=== PATIENT | female | born 1980 | race Caucasian/White ===

== ENCOUNTER 2021-11-05 13:37 | Outpatient (CLI) | payer BC, SELFPAY ==
[2021-11-05 17:25] LABS: Chloride* 103 mmol/L (96-114); Potassium* 5.1 mmol/L (3.6-5.1); Sodium* 134 mmol/L (135-149)
[2021-11-05 17:26] LABS: Carbon Dioxide* 24 mmol/L (20-32); Creatinine* 0.8 mg/dL (0.5-1.5); Estimated Glomerular Filt Rate 96.06
[2021-11-05 17:27] LABS: Blood Urea Nitrogen* 14 mg/dL (5-24); Calcium* 9.6 mg/dL (8.4-10.6); Glucose* 85 mg/dL (60-115)
== END 2021-11-05 13:38 | disposition home or self-care (01) ==
LOC: NFLDREF 13:38
PROVIDERS: PCP Family Medicine; Visit Provider Family Medicine
DX: I10 Essential (primary) hypertension (principal)
CPT/HCPCS: 80048

== ENCOUNTER 2022-08-30 16:01 | Emergency (ER) | payer BC, SELFPAY ==
[2022-08-30 16:05] VITALS: BP 120/90; PULSE 106; RESP 20; TEMP 37; O2SAT 97; BMI 60.1
--- NOTE | 2022-08-30 16:33 | ED_ITS ---
HPI - Back Pain/Injury General Chief Complaint: Back Injury/Pain Stated Complaint: back and neck pain, numbness Time Seen by Provider: 08/30/22 16:20 History of Present Illness HPI Narrative: This 41-year-old female comes in reporting left-sided neck pain radiating down her left arm. These symptoms have been present for weeks or months but she did fall about a month ago and it seems that symptoms are worse since then. She has been seeing a chiropractor without any relief. She states that she has decreased sensation throughout her whole left arm and hand. She has been taking Tylenol and ibuprofen without much relief. She states that she was able to sleep only about 3 hours last night because of these symptoms. Related Data Home Medications Medication Instructions Recorded Confirmed metformin 1,000 mg tablet 500 - 1,000 mg PO BID 08/30/22 08/30/22 multivitamin 1 tab PO DAILY 08/30/22 08/30/22 Previous Rx's Medication Instructions Recorded metoprolol succinate 100 mg 100 mg PO QDAY #7 tabs 10/25/21 tablet,extended release 24 hr norgestimate 0.25 mg-ethinyl 1 tab PO QDAY #28 tabs 10/25/21 estradiol 35 mcg tablet (Sprintec (28)) lisinopril 10 mg tablet 10 mg PO QDAY #90 tabs 11/05/21 cyclobenzaprine 10 mg tablet 10 mg PO TID #15 tabs 08/30/22 gabapentin 100 mg capsule 100 mg PO TID #30 caps 08/30/22 ketorolac 10 mg tablet 10 mg PO Q8H 5 days #15 tabs 08/30/22 methylprednisolone 4 mg tablets in See Rx Instructions PO .COMPLEX 08/30/22 a dose pack (Medrol (Sal)) #21 ea Allergies Allergy/AdvReac Type Severity Reaction Status Date / Time adhesive Allergy Severe Rash Verified 08/30/22 16:08 Review of Systems Status of ROS: Reports: 10 or more systems reviewed and unremarkable except as noted in History and below Narrative: Constitutional: No fevers, no weight gain or loss. Eyes: No discharge. No vision changes. HENT: No congestion, no sore throat, no ear pain. Cardiovascular: No chest pain, no palpitations. Respiratory: No shortness of breath, no wheezes, no cough. Gastrointestinal: No abdominal pain, no vomiting, no diarrhea. Genitourinary: No dysuria, no hematuria. Musculoskeletal: Neck pain radiating down the left arm. Skin: No rashes, no pruritis. Neurological: No dizziness, weakness, speech change. Decreased sensation in the left arm and hand but no loss of strength. Endo/Heme/Allergies: No bruising or bleeding. No polydipsia. Pysch: no suicidality, no anxiety, no insomnia. All other systems reviewed and are negative. PFSH PFSH Family History (Updated 11/04/21 @ 09:30 by Martha Block) Family/Other Diabetes Heart disease Stroke Mental disorder Father Heart disease Aunt Lung cancer Social History (Updated 11/05/21 @ 13:12 by Toni Jean MD) Narrative: SOCIAL HISTORY: . Two children ages 8 and 11 with 2 additional relative living with them. 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 She works from home. 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 She is sexually active. No regular exercise. HABITS: No tobacco alcohol or recreational drug use. Smoking Status: Never smoker Exam Narrative: Exam Narrative: Constitutional: Well-developed, well-nourished, no acute distress. HEENT: Normocephalic, atraumatic. Neck: Normal range of motion. Nontender. Supple. Heart: Regular. No murmurs. Normal rate. Intact distal pulses. Lungs: Clear to auscultation. No chest discomfort. No wheezes, rhonchi, or rales. Abdomen: Normal bowel sounds. Nontender. No rebound tenderness. Genitalia: Deferred. Back: No midline tenderness. Left-sided neck pain radiating down the left arm. Extremities: Normal range of motion. No injury. Skin: Intact. No rash. Warm. No erythema or pallor. Neurologic: No weakness. Alert and oriented. Decreased sensation through the left arm into the left hand. Induction Coordination Power Engineer strength is equal bilaterally. Psychiatric: No suicidality. No anxiety or depression. No insomnia. Nursing notes and vitals signs are reviewed. Const: Vital Signs, click to edit/add: Vital Signs - 24 hr 08/30/22 16:05 Temperature 98.6 F Pulse Rate [Pulse Oximeter] 106 H Respiratory Rate 20 Blood Pressure [Ri ght Upper Arm] 120/90 H Pulse Oximetry 97 Oxygen Delivery Me thod Room Air Course Vital Signs Vital signs: Initial Vital Signs Temperature 98.6 F 08/30/22 16:05 Temperature Source Temporal Artery Scan 08/30/22 16:05 Pulse Rate 106 H 08/30/22 16:05 Respiratory Rate 20 08/30/22 16:05 Blood Pressure 120/90 H 08/30/22 16:05 Blood Pressure Mean 100 08/30/22 16:05 Blood Pressure Position Sitting 08/30/22 16:05 Pulse Oximetry 97 08/30/22 16:05 Oxygen Delivery Method Room Air 08/30/22 16:05 Vital Signs Temperature 98.6 F 08/30/22 16:05 Pulse Rate 106 H 08/30/22 16:05 Respiratory Rate 20 08/30/22 16:05 Blood Pressure 120/90 H 08/30/22 16:05 Pulse Oximetry 97 08/30/22 16:05 Oxygen Delivery Method Room Air 08/30/22 16:05 Temperature 98.6 F 08/30/22 16:05 Pulse Rate 106 H 08/30/22 16:05 Respiratory Rate 20 08/30/22 16:05 Blood Pressure 120/90 H 08/30/22 16:05 Pulse Oximetry 97 08/30/22 16:05 Oxygen Delivery Method Room Air 08/30/22 16:05 MDM - Back Pain/Injury MDM Narrative Medical decision making narrative: This patient comes in with symptoms typical of a cervical radiculopathy. There is no recent significant injury event that mandates imaging studies at this time. She may need a MRI going forward. The patient did received prescriptions for Toradol, Flexeril, gabapentin, and Medrol Dosepak. I advised her to follow- up with our spine clinic for further evaluation and treatment. Discharge Plan Discharge Clinical Impression: Cervical radiculopathy Patient Disposition: Home, Self-Care Condition: Unchanged Additional Instructions: Take medication as needed and indicated. Follow up with Spine Clinic. Call for appointment by dialing [phone]. Prescriptions: New cyclobenzaprine 10 mg tablet 10 mg PO TID Qty: 15 0RF ketorolac 10 mg tablet 10 mg PO Q8H 5 Days Qty: 15 0RF gabapentin 100 mg capsule 100 mg PO TID Qty: 30 2RF methylprednisolone [Medrol (Sal)] 4 mg tablets,dose pack See Rx Instructions .ROUTE .COMPLEX Qty: 21 0RF Rx Instructions: orally per package directions No Action lisinopril 10 mg tablet 10 mg PO QDAY Qty: 90 3RF multivitamin Tablet 1 tab PO DAILY metformin 1,000 mg tablet 500 - 1,000 mg PO BID Rx Instructions: 1000mg in AM, 500mg in PM metoprolol succinate 100 mg tablet extended release 24 hr 100 mg PO QDAY Qty: 7 0RF norgestimate-ethinyl estradiol [Sprintec (28)] 0.25-35 mg-mcg tablet 1 tab PO QDAY Qty: 28 0RF Follow Up/Referrals: Toni Jean MD [Primary Care Provider] - Stand Alone Forms: [employer] Info Instructions
== END 2022-08-30 17:00 | disposition home or self-care (01) ==
LOC: ED 16:45
PROVIDERS: Emergency Provider Emergency Medicine Emergency Medical Services; PCP Family Medicine
DX: M54.12 Radiculopathy, cervical region (principal)
CPT/HCPCS: 99283; 99284

== ENCOUNTER 2022-11-07 08:18 | Outpatient (CLI) | payer BC, SELFPAY | END 2022-11-07 08:19 | disposition home or self-care (01) | LOC: NFLDREF 20:56 | PROVIDERS: PCP Family Medicine; Referring Provider Family Medicine; Visit Provider Family Medicine | DX: I10 Essential (primary) hypertension (principal); Z13.6 Encounter for screening for cardiovascular disorders | CPT/HCPCS: 80048; 80061 ==

== ENCOUNTER 2023-02-12 09:30 | Outpatient (CLI) | payer BC, SELFPAY | END 2023-02-12 09:31 | disposition home or self-care (01) | LOC: NFLDREF 02-14 20:45 | PROVIDERS: PCP Family Medicine; Referring Provider Family Medicine; Visit Provider Family Medicine | DX: E78.1 Pure hyperglyceridemia (principal); I10 Essential (primary) hypertension; Z79.899 Other long term (current) drug therapy | CPT/HCPCS: 80048; 80061; 84450; 84460 ==

== ENCOUNTER 2023-02-27 06:17 | Outpatient (CLI) | payer BC, SELFPAY ==
[2023-02-27 06:55] LABS: Ur HCG Qualitative* Negative (Negative)
--- NOTE | 2023-02-27 07:47 | W.ANESCHARGE ---
Anesthesia Charges Start Date/Time Anesthesia Start Date: 02/27/23 Anesthesia Start Time: 07:15 Stop Date/Time Anesthesia Stop Date: 02/27/23 Anesthesia Stop Time: 07:43
--- NOTE | 2023-02-27 08:00 | W.ANESCHARGE ---
Anesthesia Charges Start Date/Time Anesthesia Start Date: 02/27/23 Anesthesia Start Time: 07:15 Stop Date/Time Anesthesia Stop Date: 02/27/23 Anesthesia Stop Time: 07:43
== END 2023-02-27 06:18 | disposition home or self-care (01) ==
LOC: OP CLINIC 06:18
PROVIDERS: PCP Family Medicine; Visit Provider Internal Medicine
DX: Z86.010 Personal history of colon polyps (principal)
CPT/HCPCS: 45378; 81025; 811; 812; J2704

== ENCOUNTER 2023-03-17 14:39 | Outpatient (CLI) | payer BC, SELFPAY ==
--- NOTE | 2023-03-17 14:40 | CRLHL7_ITS ---
For Patients: As a result of the Cures Act, medical imaging exams and procedure reports are released immediately into your electronic medical record. You may view this report before your referring provider. If you have questions, please contact your health care provider. BILATERAL DIGITAL SCREENING MAMMOGRAM WITH COMPUTER-AIDED DETECTION CLINICAL HISTORY: Routine screening exam. COMPARISON: 08/25/2019 TECHNIQUE: Digital mammogram in CC and MLO projections including computer-aided detection (CAD). BREAST COMPOSITION: Scattered fibroglandular densities. FINDINGS: RIGHT Breast: Lobular nodular density upper outer quadrant 12 cm from the nipple. LEFT Breast: No suspicious findings. IMPRESSION: RIGHT breast asymmetry/mass. RECOMMENDATIONS: Additional mammographic views of the RIGHT breast including 3D spot compression cc/MLO. RIGHT breast ultrasound may also be required. A member of the radiology staff will be contacting the patient to arrange for this additional study. BI-RADS Category 0: Incomplete: Need Additional Imaging Evaluation and/or Prior Mammograms for Comparison Dictated by Darek Estrella MD @ 03/18/2023 8:48:35 AM (Electronically Signed)
== END 2023-03-17 14:40 | disposition home or self-care (01) ==
PROVIDERS: PCP Family Medicine; Visit Provider Family Medicine
DX: Z12.31 Encounter for screening mammogram for malignant neoplasm of breast (principal); N63.10 Unspecified lump in the right breast, unspecified quadrant
CPT/HCPCS: 77063; 77067

== ENCOUNTER 2023-03-30 07:40 | Outpatient (CLI) | payer BC, SELFPAY ==
--- NOTE | 2023-03-30 07:45 | CRLHL7_ITS ---
For Patients: As a result of the Cures Act, medical imaging exams and procedure reports are released immediately into your electronic medical record. You may view this report before your referring provider. If you have questions, please contact your health care provider. DIGITAL DIAGNOSTIC RIGHT MAMMOGRAM USING TOMOSYNTHESIS AND COMPUTER-AIDED DETECTION RIGHT BREAST ULTRASOUND CLINICAL HISTORY: RIGHT breast mass/asymmetry. COMPARISON: 03/17/2023. TECHNIQUE: Digital RIGHT mammogram in two projections. Tomosynthesis and CAD utilized. Real-time ultrasound imaging of RIGHT breast with imaging documentation. BREAST COMPOSITION: There are areas of scattered fibroglandular density. FINDINGS: 3D spot compression CC/MLO RIGHT breast mammogram images submitted. Persistent nodular density within the upper outer quadrant. No architectural distortion. No suspicious calcifications. Targeted RIGHT breast ultrasound performed at 11 o`clock 11 cm from the nipple. In this location, there is a benign intramammary lymph node measuring 1.2 x 0.6 x 0.7 cm. No abnormal vascularity. IMPRESSION: Benign intramammary lymph node RIGHT breast. No evidence of malignancy. RECOMMENDATIONS: Annual BILATERAL screening mammography. Results and recommendations discussed with the patient. BI-RADS Category 2: Benign A lay language report of this examination will be provided to the patient. Dictated by Darek Estrella MD @ 03/30/2023 9:00:36 AM j/Dictated by: Darek Estrella MD @ 03/30/2023 9:00:00 AM (Electronically Signed)
--- NOTE | 2023-03-30 08:15 | CRLHL7_ITS ---
For Patients: As a result of the Cures Act, medical imaging exams and procedure reports are released immediately into your electronic medical record. You may view this report before your referring provider. If you have questions, please contact your health care provider. PLEASE SEE DIGITAL DIAGNOSTIC RIGHT MAMMOGRAM PERFORMED SAME DAY CRL:yao samayoa/Dictated by: Darek Estrella MD @ 03/30/2023 9:00:00 AM (Electronically Signed)
== END 2023-03-30 07:41 | disposition home or self-care (01) ==
LOC: MAMMO 07:41
PROVIDERS: PCP Family Medicine; Visit Provider Family Medicine
DX: N63.10 Unspecified lump in the right breast, unspecified quadrant (principal); R92.8 Other abnormal and inconclusive findings on diagnostic imaging of breast
CPT/HCPCS: 76642; 77065; G0279

== ENCOUNTER 2023-12-01 08:54 | Outpatient (CLI) | payer BC, SELFPAY ==
--- OUTSIDE RECORDS SUMMARY | 2023-12-01 09:05 | XMS_ITS | Clinical Summary ---
Author Organization [facility] Address [place], [place] [address] Care Team Providers Care Paint Supervisor Name Role Phone Toni Jean MD Primary Care Provider [phone] Social History Tobacco Use Types Packs/Day Years Used Date Smoking Tobacco: Never Assessed Sex and Gender Information Value Date Recorded Sex Assigned at Not on file Gender Identity Not on file Sexual Orientation Not on file Plan of Treatment Health Maintenance Due Date Last Done Comments Tdap 1992 Depression screening for age 12+ 1993 HIV for age 15-65 1996 BMI (ht and wt on same day) for age 18+ 11/29/1999 Hepatitis C screening for ag e 18-79 11/29/1999 Tetanus booster 2001 Pap test for age 21-65 2002 COVID-19 vaccine series (2022-24 season) 2022 08/21/2020, 07/31/2020 Influenza for age 9-49 12/27/2023 Pneumococcal series for age 6-64 Aged Out No longer eligible b ased on patient's age to complete this topic Care Teams Paint Supervisor Relationship Specialty Start Date End Date Toni Jean MD [address] [place] [id number] PCP - General Family Practice 09/04/22
[2023-12-01 09:30] LABS: Basophils Absolute Auto 0.05 K/uL (0.00-0.30); Basophils Percent Auto 0.5 % (0.0-3.0); Eosinophils Absolute Auto 0.27 K/uL (0.00-0.50); Eosinophils Percent Auto 2.7 % (0.0-7.0); Hematocrit 42.8 % (33.0-51.0); Hemoglobin* 13.8 gm/dL (12.0-16.0); Immature Granulocytes Abs Auto 0.02 K/uL (0.00-0.30); Immature Granulocytes Pct Auto 0.2 %; Lymphocytes Absolute Auto 3.01 K/uL (0.90-2.90); Lymphocytes Percent Auto 30.1 % (20-44); Mean Corpuscular HGB Conc 32 gm/dL (32-36); Mean Corpuscular Hemoglobin 28 pg (26-34); Mean Corpuscular Volume 86 fL (80-100); Monocytes Percent Auto 5.7 % (0.0-11.0); Neutrophils Absolute Auto 6.08 K/uL (1.7-7.0); Neutrophils Percent Auto 60.8 % (42.0-72.0); Platelet Count* 365 K/uL (140-440); RDW Coefficient of Variation % 12.6 % (11.5-15.5); Red Blood Count 4.99 m/uL (4.00-5.20)
[2023-12-01 09:36] LABS: Albumin* 3.8 g/dL (3.3-5.0); Chloride* 106 mmol/L (96-114); Potassium* 4.3 mmol/L (3.6-5.1); Sodium* 137 mmol/L (135-149)
[2023-12-01 09:38] LABS: Cholesterol* 143 mg/dL (90-199)
[2023-12-01 09:39] LABS: Alanine Aminotransferase* 30 U/L (4-35); Alkaline Phosphatase* 59 U/L (40-150); Anion Gap 8 mEq/L (7-15); Aspartate Amino Transferase* 34 U/L (12-35); Bilirubin Total* 0.4 mg/dL (0.1-1.5); Blood Urea Nitrogen* 15 mg/dL (5-24); Carbon Dioxide* 23 mmol/L (20-32); Creatinine* 0.7 mg/dL (0.5-1.5); Estimated Glomerular Filt Rate 111 ml/min; Glucose* 98 mg/dL (60-115); Total Protein* 6.5 g/dL (6.0-8.3); Triglycerides* 361 mg/dL (40-149)
[2023-12-01 09:40] LABS: Calcium* 9.7 mg/dL (8.4-10.6); HDL Cholesterol* 36 mg/dL (>=50); LDL Cholesterol Calculated 35 mg/dL (<100); Slide Review Reflex No
[2023-12-01 09:54] LABS: Hemoglobin A1C* 5.8 % (0-5.6)
[2023-12-02 14:57] LABS: Estradiol Premenol Female 42 pg/mL
[2023-12-02 16:43] LABS: Prolactin 9.4 ng/mL (2.8-29.2)
[2023-12-02 19:38] LABS: Follicle Stimulating Hormone 5.9 IU/L
== END 2023-12-01 08:55 | disposition home or self-care (01) ==
LOC: NPINS 09:03
PROVIDERS: PCP Family Medicine; Visit Provider Physician Assistant
DX: Z00.00 Encounter for general adult medical examination without abnormal findings (principal)
CPT/HCPCS: 80053; 80061; 82670; 83001; 83002; 83036; 84146; 84443; 85025

== ENCOUNTER 2024-08-20 05:21 | Emergency (ER) | payer BC, SELFPAY ==
--- OUTSIDE RECORDS SUMMARY | 2024-08-20 05:23 | XMS_ITS | Clinical Summary ---
Author Organization [facility] Address [address] [place] [id number] Care Team Providers Care Fell Cutter Name Role Phone Toni Jean MD Primary Care Provider [phone] Social History Tobacco Use Types Packs/Day Years Used Date Smoking Tobacco: Never Assessed Comments Unknown Sex and Gender Information Value Date Recorded Sex Assigned at Not on file Legal Sex Female 9:00 PM CDT Gender Identity Not on file Sexual Orientation Not on file Plan of Treatment Health Maintenance Due Date Last Done Comments Tdap 1992 Depression screening for age 12+ 1993 HIV for age 15-65 1996 BMI (ht and wt on same day) for age 18+ 11/29/1999 Hepatitis C screening for ag e 18-79 11/29/1999 Tetanus booster 2001 Pap test for age 21-65 2002 ([place]) Influenza for age 9-49 12/27/2023 COVID-19 vaccine series (2023- season) 2023 08/21/2020, 07/31/2020 Pneumococcal series for age 6-49 Aged Out No longer eligible b ased on patient's age to complete this topic Insurance BLUE CROSS OF NON-MD-ITS Care Teams Fell Cutter Relationship Specialty Start Date End Date Toni Jean MD [address] [place] [id number] PCP - General Family Practice 09/04/22
--- OUTSIDE RECORDS SUMMARY | 2024-08-20 05:24 | XMS_ITS | Data Portability ---
Author Organization [place] [facility], auto[employer] - Main Office Address [address] [facility] , [address] [place] [address] Assessment Encounter Date Assessment Date Assessment LastModified by Organization Details LastModified Time 03/28/2024 03/28/2024 She will continue on her current dose of 1 mg weekly Wegovy. She will continue to work on diet and exercise. She is going to try strength training 4-5 times weekly. She will continue to monitor her blood pressure. She will follow-up in one month. Questions answered. [email or web address] Not available 03/28/2024 16:21:04 05/04/2024 05/04/2024 She will increase her Wegovy dose to 2.4 mg. She will continue exercising and try to incorporate strength training more regularly. She will try incorporating an electrolyte drink to help with dizziness. She will followup in four weeks or sooner if issues arise. Questions answered. [email or web address] Not available 05/04/2024 11:16:24 06/08/2024 06/08/2024 She will continue on her current dose of Wegovy. Advised patient just to focus on diet this month as she is already feeling overwhelmed with life changes. She will focus on limiting eating out and protein. She will also try monitoring portion sizes. She will follow-up in four weeks or sooner if issues arise. Discussed treatment for depression. Patient will continue to monitor symptoms. [email or web address] Not available 06/08/2024 11:25:00 07/11/2024 07/11/2024 Discussed risks and benefits of Sertraline. She will start on 50 mg daily. She will follow-up in four weeks or sooner if issues arise. Discussed the importance of strength training. She will add in body weight strength such as squats and lunges. She will focus on mental health this month. Referral was placed to therapy. Questions answered. [email or web address] Not available 07/11/2024 13:46:48 Plan of Treatment Reminders Order Date Submit Date Provider Last Modified By Organization Details Last Modified Time Details Appointments None recorded. Lab None recorded. Referral psychologis t referral - Virtual visit preferred. [facility] [address] [place], [address], 11:38:54 Procedures None recorded. Surgeries None recorded. Imaging None recorded. Medication Orders Wegovy 2.4 mg/0.75 mL subcutaneou s pen injector 2024 025 [facility] [id number], [address] [place] [address], [address], 5 14:19:19 sertraline 50 mg tablet 2024 025 [id number], [address] [place] [address], [address], 5 13:49:57 Wegovy 2.4 mg/0.75 mL subcutaneou s pen injector 2024 025 FIOR [id number], [address] [place] [address], [address], 5 11:13:51 Patient TargetsNo targets recorded. Patient InstructionsNo instructions recorded. Reason for Referral Psychologist Referral for Mo derate major depression Virtual visit preferred. Referring Physician: Dejah Darling, Gynecology, Encounter Date: 07/11/2024 Problems Name Problem SNOMED Code Status Onset Date Resolution Date Notes Provider Name and Address Organization Details Recorded Time Polycysti c ovary syndrome 260717774 Active 2023 Polycystic ovary syndrome Not Available [facility] 4 08:42:03 Morbid obesity 981069459 Active 2023 Morbid obesity Not Available [facility] 4 08:42:03 Insomnia 611508573 Active 2023 Insomnia Not Available [facility] 08:42:03 Problem Notes None recorded. Medical Equipment None Reported. Medications Name Sig Start Date Stop Date Status Note LastModified by Organization Details LastModified Time fenofibrate micronized 160 mg tablet Take one tablet daily 2023 active Not Available Not Available Not Avai lable metoprolol succinate ER 100 mg tablet,exte nded release 24 hr take one tablet daily active Not Available Not Available No t Available cephalexin 500 mg capsule TAKE 1 CAPSULE BY MOUTH, TWICE A DAY FOR FIVE DAYS. active Not Available Not Available No t Available metformin 1,000 mg tablet 12/30 completed Not Available Not Available Not Available lisinopril 10 mg tablet Take one pill daily active Not Available Not Available No t Available sertraline 50 mg tablet TAKE 1/2 TABLET BY MOUTH ONCE DAILY FOR 6 DAYS. THEN INCREASE TO 1 TABLET BY MOUTH ONCE DAILY 2024 active Not Available Not Available Not Avai lable fenofibrate 160 mg tablet active Not Available Not Available Not Available Estarylla 0.25 mg-0.035 mg tablet active Not Available Not Available Not Available Wegovy 2.4 mg/0.75 mL subcutaneou s pen injector INJECT 2.4 MG SUBCUTANE OUSLY WEEKLY active Not Available Not Available No t Available Wegovy 1.7 mg/0.75 mL subcutaneou s pen injector INJECT 1.7MG SUBCUTANE OUS ONCE WEEKLY FOR 3 WEEKS 07/11 completed Not Available Not Available Not Available Wegovy 1 mg/0.5 mL subcutaneou s pen injector Take one injection weekly 07/11 completed Not Available Not Available Not Available Wegovy 0.25 mg/0.5 mL subcutaneou s pen injector Take one injection weekly 12/30 completed Not Available Not Available Not Available Wegovy 0.5 mg/0.5 mL subcutaneou s pen injector Take one injection weekly 01/28 completed Not Available Not Available Not Available Vitals Date Recorded Body height Body mass index (BMI) Body weight Provider Name and Address Organization Details Last Updated DateTime 07/11/2024 160.02 cm 40.4 kg/m2 002092.78 g Dejah Darling PA-C [address], [address], [place] - [facility] 07/11/2024 13:36:07 Date Recorded Body height Body mass index (BMI) Body weight Systolic blood pressure Diastolic blood pressure Provider Name and Address Organization Details Last Updated DateTime 03/28/2024 160.02 cm 42.9 kg/m2 579513.3 5 g 103 mm[Hg] 70 mm[Hg] Dejah Darling PA-C [address], [address], [place] - [facility] 16:21:29 Date Recorded Body height Systolic blood pressure Diastolic blood pressure Provider Name and Address Organization Details Last Updated DateTime 05/04/2024 160.02 cm 130 mm[Hg] 90 mm[Hg] Scott Darling [place] [facility] 05/04/2024 11:07:30 Date Recorded Body mass index (BMI) Body weight Provider Name and Address Organization Details Last Updated DateTime 05/04/2024 42.1 kg/m2 448196.19 g Dejah Darling PA-C [address], [address], [place] - [facility] 05/04/2024 11:09:52 Date Recorded Body height Body mass index (BMI) Body weight Provider Name and Address Organization Details Last Updated DateTime 06/08/2024 160.02 cm 41 kg/m2 043213.56 g Dejah Darling PA-C [address], [address], [place] [facility] 06/08/2024 11:25:11 Social History None recorded. Functional Status None recorded. Mental Status None recorded. Family History Nothing Reported. Medical History No medical history recorded. Gynecological HistoryNo gynecological history recorded. Obstetrics History GPAL:G 0 P 0 0 0 0 Past Encounters Encounter ID Performer Location Encounter Start Date Encounter Closed Date Diagnosis/Indication Diagnosis SNOMED-CT Code Diagnosis ICD10 Code Diagnosis Note 141 Dejah Darling PA-C [facility] [address] [facility],[address] [place] [address] 03/28/2024 15:56:19 03/29/2024 13:08:04 Morbid obesity 517988371 E66.01 268 Scott Darling [facility] [address] [facility],[address] [place] [address] 05/04/2024 10:57:39 05/04/2024 11:21:29 Morbid obesity 605196759 E66.01 387 Dejah Darling PA-C [facility] [address] [facility],[address] [place] [address] 06/08/2024 10:53:29 06/08/2024 11:34:39 Morbid obesity 017062535 E66.01 525 [facility] [address] [facility],[address] [address] 07/11/2024 13:22:56 07/11/2024 13:50:25 Moderate major depression 537444 F32.1 Morbid obesity 631812069 E66.01 Health Concerns Section Related Observation LastModified by Organization Detai ls LastModified Time None Recorded Concern Status LastModified by Organization Details LastModified Time None Recorded Advance Directives Directive None Recorded Payers Encounter Date Sequence Insurance Name Policy Number Policy Still Covered Member ID Still Member ID Guarantor Name 03/28/2024 1 *SELF PAY* 05/04/2024 1 *SELF PAY* 06/08/2024 1 *SELF PAY* 07/11/2024 1 *SELF PAY* Notes Date Note Type Note Provider Name and Address Organization Details Recorded Time 03/28/2024 text/html Patient is a pleasant 43 yo female here for weight loss follow-up. She has continued to have weight loss on Wegovy. She is feeling more energetic and less emotional/hormonal . She is currently on 1 mg weekly. She did have some indigestion which has improved. No nausea/vomiting. She has been trying to push fluids, but has not been doing great. She has had lower blood pressures and occasionally feeling dizzy. She has been consistently taking them at 103/70 and 105/68. She is questioning if she should lower her blood pressure medication. Dejah Darling PA-C [address] [facility] [address], [place], [address], [facility] 03/28/2024 16:22:10 05/04/2024 text/html Patient is a pleasant 43yo woman here for weight loss followup. She is doing well on 1.7mg Wegovy with no side effects. She reports a decrease in reflux and burping at this dose. Her appetite is higher than when she first started the medication. She does exercise and is trying to improve her consistency. She eats out occasionally. She does not smoke or drink. She reports having been missing doses of her blood pressure medication. She reports episodes of dizziness. She does drink enough water. Scott Darling [facility] 05/04/2024 11:20:07 06/08/2024 text/html Patient is a pleasant 43 yo female here for weight loss follow-up. She is currently on 2.4 mg of Wegovy weekly. She continues to do amazing with weight loss. This past month has been very emotional and overwhelming. Her sister is being placed under arrest for possible child endangerment. Patient is currently at the airport [place] way to get her nieces and nephews. Her mother also had to move in with her this past month. She already has another siblings daughter. She will have a total of six kids in her house. She is feeling very emotional. She feels her is being very supportive. Her moms health is declining. She has struggled with diet and exercise this past month. No nausea, vomiting, or diarrhea. She has continued to have weight loss. She is pushing fluids. Dejah Darling PA-C [address] [facility] [address], [place], [address], [facility] - [facility] 06/08/2024 11:25:38 07/11/2024 text/html Patient is a pleasant 43 yo female here for weight loss follow-up. She is currently on 2.4 mg of Wegovy weekly. She has again had a very stressful month. Two of the children she was taking care of when back to their parents. She is still trying to get them back as they are not in a healthy situation. She is still taking care of the child with more medical needs. Her asked for a divorce several days ago. She is really struggling with the life changes. She is tearful throughout the appointment. She does have a support system, but she continues to be the rock of family. She is taking care of not just her children, but the children of other family members. She admits to not exercising with this increase in stress. She does not drink alcohol. She would like to start an antidepressant. She has been on them in the past. She did have one that was successful. She would also like to start therapy. She would likely need it to be virtual. No suicidal ideation. Dejah Darling PA-C [address] [facility] [address], [place], [address], [facility] - [facility] 07/11/2024 13:49:35 OBGyn Episode No OBEpisode recorded.
--- OUTSIDE RECORDS SUMMARY | 2024-08-20 05:24 | XMS_ITS | Patient Health Record ---
Author Organization [facility]ocelyn es Billing Info Address [address] [place], [place] [address] Care Team Providers Care Assistant Manager Retail Name Role Phone JORDY YEH Primary Care Provider Allergies Allergen (clinical drug ingredient) Drug/Non Drug Allergy documented on EMR Reaction Allergy Type Onset Date Status ADHESIVE Unknown Drug Allergy Active Mastisol Adhesive topical Drug Allergy Active Reason For Referral No Information Medications Medication SIG (Take, Route, Frequency, Duration) Notes Start Date End Date Status Metformin HCl 500 MG 1 Orally QID for 30 day(s) Not-Taking Norgestimate-Eth Estradiol 0.25-35 MG-MCG 1 tablet Orally Once a day for 90 day(s) 02/03/2019 Active Metoprolol Succinate ER 25 MG Orally Active Zoloft 50 mg 1 tablet Orally Once a day for 30 day(s) 03/11/2013 Not-Taking Phentermine HCl 30 MG 1 capsule Orally O nce a day for 30 days 03/26/2016 Not-Taking Phentermine HCl 30 MG 1 capsule Orally O nce a day for 30 days 06/11/2016 Not-Taking Vitamin D (Ergocalciferol) 37617 UNIT 1 capsule Orally 3 times a week for 90 day(s) 04/11/2014 Not-Taking Meclizine HCl 25 MG 1 tablet as needed Orally Once a day for 30 day(s) 09/07/2013 Not-Taking Contrave 8-90 MG 2 tabs Orally bid fo r 30 days 07/19/2014 Not-Taking NuvaRing 0.12-0.015 MG/24HR 1 ring Vaginal insert for 24 days and remove and replace with new ring after 4 days for 30 day(s) 07/19/2014 Not-Taking Nystatin 985560 UNIT/GM 1 application to affected area Externally Three times a day for 30 days 02/26/2015 Not-Taking Immunizations Vaccine Route Administration Date Status Comme nts FLU (Past vaccine of unknown type) Unknown 07/15/2013 Administered zFLU 4V (FLUARIX QUAD), 6 MO+, NO PRES - ALL PAYORS IM Intramuscular 02/26/2015 Administered NDC: 04502-21 3-41 zFLU 4V (FLUZONE QUAD INTRADERMAL), 18-64 YRS, NO PRES - SELF PAY ID Intradermal 03/26/2016 Administered NDC 55439-828-59 zFLU 4V (FLUZONE QUAD), 6MO+ (0.5 ML), NO PRES - ALL PAYORS IM Intramuscular 02/17/2019 Administered NDC:84039-296-2 8 Problems No Known Problems Plan Of Treatment Pending Test Test Name Order Date EKG W/ INTERPRETATION (44390) INACTIVE 0 07/11/2013 US- OB > 15 WEEKS ([facility]-OB20) 11/22/2012 COMPREHENSIVE METABOLIC PANEL ([facility]-CMP) 03/26/2016 T4 FREE ([facility]-T4F) 03/26/2016 THYROID STIMULATING HORMONE ([facility]-TSH) 1 05/26/2015 Comprehensive Metabolic Panel w/GFR (CMP D) (18160.Z2) 12/23/2012 B12 and Folate (B12FOL) 12/23/2012 EBV Ab Panel (EBPANL) 12/23/2012 TSH Reflex (UTSHRX) 22466.Z1 12/23/2012 EBV Ab to Viral Capsid Ag, IgG (EBVGL) 1 05/31/2013 EBV Ab to Viral Capsid Ag, IgM (EBVML) 1 05/31/2013 Rhogam Product([facility]-[id number]) 11/22/2012 CBC with Plt + Diff (TPCBC2) OR [facility] Future Test Test Name Order Date Free T4 (UFT4) 62617.Z101 08/02/2013 Free T3 (FT3) 08/02/2013 TSH (UTSH) 33324.Z2 08/02/2013 Antithyroglobulin Ab ([id number]) 08/03/19 14 Insurance Providers Payer Name Payer Address Payer Phone Subscriber Number Group Number Insured Name Patient Relationship to Insured Coverage Start Date Coverage End Date [employer] [address] [address] [place], [place] [id number] [phone] [id number] Donny Alvarez Self - patient is the insured 9 5 Medical (General) History Medical History History ICD Code PCOS Gestionial Diabetes Hypothyroid PCOS (polycystic ovarian syndrome) 256.4 Pharyngitis 462 Hematochezia 578.1 Decreased libido 799.81 Near syncope 780.2 Hypoglycemia 251.2 Hyperinsulinemia 251.1 Surgical History Surgery Date(Month/Year) Left Knee 2004 x2 2010 Hospitalization History Reason Date(Month/Year) x 2
--- OUTSIDE RECORDS SUMMARY | 2024-08-20 05:24 | XMS_ITS | Continuity of Care Document ---
Author Organization [place] [facility], [facility] Address [address] [facility] [address] [place] [address] Assessment Encounter Date Assessment Date Assessment LastModified by Organization Details LastModified Time 07/11/2024 07/11/2024 Discussed risks and benefits of [...] referral - Virtual visit preferred. 2024 025 adaine [facility], [address] [place], [address], 11:38:54 Procedures None recorded. Surgeries None recorded. Imaging None recorded. Medication Orders Wegovy 2.4 mg/0.75 mL subcutaneou s pen injector 2024 025 [facility] [id number], [address] [place] [address], [address], 5 14:19:19 sertraline 50 mg tablet 2024 025 adahline [id number], [address] [place] [address], [address], 5 13:49:57 Patient TargetsNo targets recorded. Patient InstructionsNo instructions recorded. Reason for Referral Psychologist Referral for Mo derate major depression Virtual visit preferred. Referring Physician: Dejah Darling Gynecology, Encounter Date: 07/11/2024 Problems Name Problem SNOMED Code Status Onset Date Resolution Date Notes Provider Name and Address Organization Details Recorded Time Polycysti c ovary syndrome 446267346 Active 2023 Polycystic ovary syndrome Not Available [facility] 4 08:42:03 Morbid obesity 797112445 Active 2023 Morbid obesity Not Available [facility] 4 08:42:03 Insomnia 564046459 Active 2023 Insomnia Not Available [facility] 4 08:42:03 Problem Notes None recorded. Medical Equipment [...] SUBCUTANE OUS ONCE WEEKLY FOR 3 WEEKS 03/17 /2025 completed Not Available Not Available Not Available [...] Updated DateTime 07/11/2024 160.02 cm 40.4 kg/m2 610725.78 g Dejah Darling PA-C [address] [facility] [address], [place], [address], [place] [facility] 07/11/2024 13:36:07 Social History None recorded. Functional Status None recorded. Mental Status None recorded. Family History Nothing Reported. Medical History No medical history recorded. Gynecological HistoryNo gynecological history recorded. Obstetrics History GPAL:G 0 P 0 0 0 0 Past Encounters Encounter ID Performer Location Encounter Start Date Encounter Closed Date Diagnosis/Indication Diagnosis SNOMED-CT Code Diagnosis ICD10 Code Diagnosis Note 525 [facility] [address] [facility],[address] [place] [address] 07/11/2024 13:22:56 07/11/2024 13:50:25 Moderate major depression 263373 F32.1 Morbid obesity 340133464 E66.01 Health Concerns Section Related Observation LastModified by Organization Detai ls LastModified Time None Recorded Concern Status LastModified by Organization Details LastModified Time None Recorded Payers Encounter Date Sequence Insurance Name Policy Number Policy Still Covered Member ID Still Member ID Guarantor Name 07/11/2024 1 *SELF PAY* Notes Date Note Type Note Provider Name and Address Organization Details Recorded Time 07/11/2024 text/html Patient is a pleasant 43 [...] virtual. No suicidal ideation. Dejah Darling PA-C [address] [place] [address] [address], [place], [address], [facility] - [facility] 07/11/2024 13:49:35 OBGyn Episode No OBEpisode recorded.
[2024-08-20 05:26] VITALS: BP 127/87; PULSE 86; RESP 18; TEMP 36.1; O2SAT 97; BMI 39.9
--- NOTE | 2024-08-20 05:54 | CRLHL7_ITS ---
For Patients: As a result of the Century Cures Act, medical imaging exams and procedure reports are released immediately into your electronic medical record. You may view this report before your referring provider. If you have questions, please contact your health care provider. INDICATION: Left facial numbness COMPARISON: None TECHNIQUE: CT examination of the head was performed as axial sections without intravenous contrast. Images were obtained from the vertex of the skull through the skull base. Please note that all CT scans at this facility use dose modulation, iterative reconstruction, and/or weight-based dosing when appropriate to reduce radiation dose to as low as reasonably achievable. FINDINGS: The brain shows no sign of mass lesion, mass effect, hemorrhage, or edema. The ventricles and sulci are normal in appearance for the patient`s age. The visualized portions of the orbits are normal in appearance. The osseous structures are normal in their appearance with no sign of abnormality in the skull base or calvarium. Incidental dense calcification of the anterior falx. Multiple partially calcified subcutaneous lesions of the scalp probably epidermal inclusion cysts or pilar cysts IMPRESSION: No significant intracranial findings. Incidental findings as discussed above. Please note that all CT scans at this facility use dose modulation, iterative reconstruction, and/or weight-based dosing when appropriate to reduce radiation dose to as low as reasonably achievable. Dictated by Ronan Landaverde MD @ 08/20/2024 6:35:03 AM (Electronically Signed)
--- OUTSIDE RECORDS SUMMARY | 2024-08-20 06:12 | XMS_ITS | Clinical Summary ---
Author Organization [facility] Address [address] [place] [address] Care Team Providers Care Assistant Director Name Role Phone Toni Jean MD Primary Care Provider [phone] Social History Tobacco Use Types Packs/Day Years [...] complete this topic Insurance BLUE CROSS OF NON-DE-ITS Care Teams Assistant Director Relationship Specialty Start Date End Date Toni Jean MD [address] [place] [address] PCP - General Family Practice 09/04/22
[2024-08-20 06:40] LABS: Basophils Absolute Auto 0.05 K/uL (0.00-0.30); Basophils Percent Auto 0.5 % (0.0-3.0); Eosinophils Absolute Auto 0.22 K/uL (0.00-0.50); Eosinophils Percent Auto 2.1 % (0.0-7.0); Hemoglobin* 12.5 gm/dL (12.0-16.0); Immature Granulocytes Abs Auto 0.01 K/uL (0.00-0.30); Immature Granulocytes Pct Auto 0.1 %; Lymphocytes Absolute Auto 2.24 K/uL (0.90-2.90); Lymphocytes Percent Auto 21.6 % (20-44); Mean Corpuscular HGB Conc 33 gm/dL (32-36); Mean Corpuscular Hemoglobin 28 pg (26-34); Mean Corpuscular Volume 84 fL (80-100); Monocytes Percent Auto 4.8 % (0.0-11.0); Neutrophils Absolute Auto 7.37 K/uL (1.7-7.0); Neutrophils Percent Auto 70.9 % (42.0-72.0); Platelet Count* 327 K/uL (140-440); RDW Coefficient of Variation % 12.8 % (11.5-15.5); Red Blood Count 4.54 m/uL (4.00-5.20); White Blood Count* 10.39 K/uL (4.50-11.00)
--- NOTE | 2024-08-20 06:43 | ED_ITS ---
HPI - General Adult General Chief complaint: Unspecified Complaint, Adult Stated complaint: Lower face numbness Time Seen by Provider: 08/20/24 05:30 History of Present Illness HPI narrative: 43-year-old female presents the emergency department with a numb feeling in her left cheek area. No motor difficulty. No headache. In triage, swelling of her left upper and lower lip was noted. No swelling of the tongue, no difficulty talking or swallowing. No prior history of similar symptoms. She does take an estrogen containing oral contraceptive. No history of DVT or PE. She does have a history of headaches on occasion but does not have 1 today. She has suspected these might be migraines but does not have an overt history of hemiplegic migraines in the past. No history of Treadwell's palsy. No shingle symptoms. No recent illness, fever, sore throat or congestion. Has not tried taking any medications to help with her symptoms. She believes symptoms started at about [id number]. Her awoke her at 4:00 a.m. when he left for work and she was asymptomatic at that time. She rested in the bed but did not notice symptoms starting until around 515-530. She does seem like a very reliable historian. She does take lisinopril for hypertension doses unchanged for several years. Nonsmoker. No neurological changes noted in the arms, legs, other parts of the body. Past medical history notable for hypertension, obesity. Reports that her home meds are fenofibrate, lisinopril, metoprolol oral contraceptive. Some med we tied is also listed though she does not admit to the medication. Allergies to adhesive. ROS is notable for the vague neurological symptoms in the face, otherwise denies times 12 systems. Related Data Home Medications ?Medication ?Instructions ?Recorded ?Confirmed multivitamin 1 tab PO DAILY 08/30/22 08/10/24 semaglutide (weight loss) 2.4 2.4 mg subcut 08/10/24 08/10/24 mg/0.75 mL subcutaneous pen injector (Aleksandergovy) Previous Rx's ?Medication ?Instructions ?Recorded lisinopril 10 mg tablet 10 mg PO QDAY #90 tabs 10/20/23 norgestimate 0.25 mg-ethinyl 1 tab PO DAILY #28 tabs 11/25/23 estradiol 0.035 mg tablet (Estarylla) fenofibrate 160 mg tablet 160 mg PO QDAY #30 tabs 12/16/23 metoprolol succinate 100 mg 100 mg PO QDAY #30 tabs 12/16/23 tablet,extended release 24 hr hydroxyzine pamoate 25 mg capsule 25 mg PO QID PRN angioedema #20 08/20/24 caps prednisone 20 mg tablet 20 mg PO BID 3 days #6 tabs 08/20/24 Allergies Allergy/AdvReac Type Severity Reaction Status Date / Time adhesive Allergy Severe Rash Verified 02/11/23 15:18 lisinopril Allergy Severe Angioedema Verified 08/20/24 07:25 PFSH PFSH Family History Family/Other Diabetes Heart disease Stroke Mental disorder Father Heart disease Aunt Lung cancer Social History Narrative: SOCIAL HISTORY: . Two children ages 8 and 11 with 2 additional relative living with them. 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 She works from home. 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 She is sexually active. No regular exercise. HABITS: No tobacco alcohol or recreational drug use. What is your current living situation?: I presently have a place to live Problems where you live: other Problems where you live details: construction zone - sheetrock dust, etc. In the past 12 months, utilities in danger of being shut off: no In past 12 months, lack of transportation kept you from medical appts, meetings, work, or getting things needed for daily living: no In the past 12 mos, have been you worried that your food would run out before you had money to buy more?: never true In the past 12 mos, the food you bought just didn't last and you didn't have money to buy more?: never true Smoking Status: Never smoker How often do you have a drink containing alcohol: never How often do you have six or more drinks on one occasion: Never AUDIT-C Alcohol total score: 0 Non-prescribed substance use: denies use How often does anyone, including family, friends and others, physically hurt you : never How often does anyone, including family, friends and others, insult or talk down to you: rarely How often does anyone, including family, friends and others, threaten you with harm: never How often does anyone, including family, friends and others, scream or curse at you: rarely Health Related Social Needs: Other personal risk factors, not elsewhere classified (Z91.89) Exam Const: Vital Signs, click to edit/add: Vital Signs - 24 hr 08/20/24 05:26 08/20/24 07:25 Temperature 97.0 F L Pulse Rate [Left P ulse Oximeter] 86 74 Respiratory Rate 18 18 Blood Pressure [Ri ght Upper Arm] 127/87 126/87 Pulse Oximetry 97 97 Oxygen Delivery Me thod Room Air Room Air Documenting provider has reviewed patient's vital signs: yes Common normals: no apparent distress and oriented x3 General appearance: cooperative, comfortable and well kempt HENMT: Common normals: normocephalic, moist oral mucous membranes and oropharynx normal Head and scalp: normocephalic Other: Normal facial motor function of bilateral for head, eyes, cheeks, jaw. No swelling appreciated of the left cheek but there is swelling of the left upper and lower lip. Mild but obvious. No swelling of the tongue or inner mucous membranes. No difficulty speaking or swallowing. Normal sensation to touch on both sides of the face. Eye: Common normals: PERRL, EOMs intact bilaterally and conjunctivae normal General eye: normal appearance of both eyes Conjunctiva: conjunctiva(e) normal Pupil: PERRL Neck & C-Spine: Common normals: full ROM and no lymphadenopathy General: normal visual inspection Resp: Common normals: normal respiratory effort, no use of accessory muscles and clear to auscultation bilaterally Effort & inspection: able to speak in complete sentences Auscultation: clear to auscultation bilaterally Cardio: Common normals: regular rate, regular rhythm, S1 normal heart sound, S2 normal heart sound and no murmurs Rate: regular rate Rhythm: regular rhythm Heart sounds: S1 normal and S2 normal GI: Common normals: Normal to inspection, nondistended, normoactive bowel sounds present, soft to palpation, non-tender, no hepatosplenomegaly and no masses Palpation: soft and no hepatosplenomegaly Extremity: Common normals: normal to inspection and no pedal edema Neuro: Common normals: oriented x3, CN's II-XII intact bilaterally, moves all extremities, no focal motor deficits and no sensory deficits noted Coordination/balance: tandem gait normal and Romberg test negative Speech: speech normal Gait (neuro): normal gait Motor exam: no tremor noted and no movement abnormalities noted Coordination: tandem gait normal Psych: Common normals: thought process normal and speech normal Appearance: well kempt Attitude: engaged Activity/motor behavior: appropriate eye contact Speech: normal speech Thought process: normal thought process Insight: insight good Judgement: judgment good Skin: Common normals: no rashes or lesions noted General skin exam: no rashes or lesions noted Course Course ED Course: 43-year-old female with acute paresthesia of left cheek. She also has some very mild swelling of the left upper and lower lip. Differential diagnosis includes cerebrovascular event but I think this is more likely angioedema. She does have risk factors for stroke with her obesity, age, estrogen use that I do think a head CT is warranted and she is very concerned about the neurological change more so than the swelling of the lip which she had not noticed. I am not appreciating any emergent threat to her airway but I would recommend that we go ahead and treat with some prednisone, Vistaril and famotidine to see if we can slow the reaction. She has not yet taken her lisinopril today. Will obtain some basic labs to ensure that there was no renal dysfunction, electrolyte abnormality, anemia or other unusual circumstance. While we await the CT findings. Reevaluation(s) Time of Reevaluation #1: 07:32 Reevaluation #1: Re-evaluation shows still no further facial swelling. Lip swelling looks a little more diffuse but still only on the left side. There is no swelling of the tongue or airway. Patient tolerated the medications well. No progression of motor symptoms on the face. Normal head CT reviewed. Really do think this is an early case of angioedema induced by her lisinopril. Rationale as discussed. Counseled patient that rarely these can escalate and worsen and alarm symptoms such as swelling of the lips, tongue, difficulty swallowing, eyelid swelling difficulty breathing or other similar severe symptoms would warrant coming right back to the ED. Written instructions provided. She will stop the lisinopril immediately, it has been added as an allergy. She will make a follow-up appoint with her primary care provider in 1 week to discuss a new antihypertensive regimen. Prednisone 20 mg b.i.d. for 3 days, Vistaril 25 mg q.i.d. p.r.n.. Counseled patient that this certainly could be hemiplegic migraine or TIA event but this diagnosis because of the mild swelling even though it is not very obvious does seem most consistent. She is in agreement and will make the follow-up as prescribed. Vital Signs Vital signs: Initial Vital Signs Temperature 97.0 F L 08/20/24 05:26 Temperature Source Temporal Artery Scan 08/20/24 05:26 Pulse Rate 86 08/20/24 05:26 Pulse Rhythm Regular 08/20/24 05:26 Respiratory Rate 18 08/20/24 05:26 Blood Pressure 127/87 08/20/24 05:26 Blood Pressure Mean 100 08/20/24 05:26 Blood Pressure Position Sitting 08/20/24 05:26 Pulse Oximetry 97 08/20/24 05:26 Oxygen Delivery Method Room Air 08/20/24 05:26 Vital Signs Temperature 97.0 F L 08/20/24 05:26 Pulse Rate 86 08/20/24 05:26 Respiratory Rate 18 08/20/24 05:26 Blood Pressure 127/87 08/20/24 05:26 Pulse Oximetry 97 08/20/24 05:26 Oxygen Delivery Method Room Air 08/20/24 05:26 Temperature 97.0 F L 08/20/24 05:26 Pulse Rate 74 08/20/24 07:25 Respiratory Rate 18 08/20/24 07:25 Blood Pressure 126/87 08/20/24 07:25 Pulse Oximetry 97 08/20/24 07:25 Oxygen Delivery Method Room Air 08/20/24 07:25 Medications Administered Medications: Discontinued Medications Generic Name Dose Route Start Last Admin Trade Name Freq PRN Reason Stop Dose Admin Famotidine 20 mg 08/20/24 05:54 08/20/24 06:51 Famotidine 20 Mg Tablet PO 08/20/24 05:55 20 mg ONCE ONE Administration Hydroxyzine Pamoate 25 mg 08/20/24 05:54 08/20/24 06:51 Hydroxyzine Pamoate 25 Mg Capsule PO 08/20/24 05:55 25 mg ONCE ONE Administration Prednisone 40 mg 08/20/24 05:54 08/20/24 06:52 Prednisone 20 Mg Tablet PO 08/20/24 05:55 40 mg ONCE ONE Administration Medical Decision Making Lab Data Lab results reviewed: Yes I reviewed the patient's lab results Lab results narrative: Labs very reassuring. Labs: Lab Results 08/20/24 Range/Units 06:33 WBC 10.39 (4.50-11.00) K/uL RBC 4.54 (4.00-5.20) m/uL Hgb 12.5 (12.0-16.0) gm/dL Hct 38.0 (33.0-51.0) % MCV 84 (80-100) fL MCH 28 (26-34) pg MCHC 33 (32-36) gm/dL RDW Coeff of Jose 12.8 (11.5-15.5) % Plt Count 327 (140-440) K/uL Neut % (Auto) 70.9 (42.0-72.0) % Lymph % (Auto) 21.6 (20-44) % Hudson % (Auto) 4.8 (0.0-11.0) % Eos % (Auto) 2.1 (0.0-7.0) % Baso % (Auto) 0.5 (0.0-3.0) % Neut # (Auto) 7.37 H (1.7-7.0) K/uL Lymph # (Auto) 2.24 (0.90-2.90) K/uL Hudson # (Auto) 0.50 (0.00-0.90) K/UL Eos # (Auto) 0.22 (0.00-0.50) K/uL Baso # (Auto) 0.05 (0.00-0.30) K/uL Abs Immat Gran (auto) 0.01 (0.00-0.30) K/uL Imm/Tot Granulo (auto) 0.1 % Sodium 136 (135-149) mmol/L Potassium 4.3 (3.6-5.1) mmol/L Chloride 104 (96-114) mmol/L Carbon Dioxide 25 (20-32) mmol/L Anion Gap 7 (7-15) mEq/L BUN 15 (5-24) mg/dL Creatinine 0.8 (0.5-1.5) mg/dL Estimated Creat Clear 75.78 Estimated GFR 94 ml/min Glucose 87 (60-115) mg/dL Calcium 9.0 (8.4-10.6) mg/dL C-Reactive Protein 3.2 H (0.5-1.0) mg/dL Imaging Data CT scan - head: Attestation: I have reviewed the pertinent imaging results. My impression: Benign appearing calcifications, no signs of mass or intracranial hemorrhage. Radiologist's impression: FINDINGS: The brain shows no sign of mass lesion, mass effect, hemorrhage, or edema. The ventricles and sulci are normal in appearance for the patient`s age. The visualized portions of the orbits are normal in appearance. The osseous structures are normal in their appearance with no sign of abnormality in the skull base or calvarium. Incidental dense calcification of the anterior falx. Multiple partially calcified subcutaneous lesions of the scalp probably epidermal inclusion cysts or pilar cysts IMPRESSION: No significant intracranial findings. Incidental findings as discussed above. Please note that all CT scans at this facility use dose modulation, iterative reconstruction, and/or weight-based dosing when appropriate to reduce radiation dose to as low as reasonably achievable. Dictated by Ronan Landaverde MD @ 08/20/2024 6:35:03 AM Discharge Plan Discharge Clinical Impression: Angioedema of lips Patient Disposition: Home, Self-Care Condition: Improved Instructions: Angioedema (ED) Additional Instructions: As we discussed, there thankfully no signs of stroke today. Signs point to this being most likely an episode of lisinopril induced angioedema. Unfortunately, this is fairly common. This is an excellent blood pressure medicine but unfortunately does run a risk of this condition where your lips, face and unfortunately her airway can swell shut. It is important that you stop the lisinopril immediately. The reaction should cease within about 3 days of you stopping the medication. I have started you on a medicine called prednisone you will take this 2 times daily for the next 3 days. You have already had your Thursday morning dose here in the emergency room. I have also prescribed some Vistaril, and antihistamine allergy medication. You can take this up to every 6 hours for the swelling. Would automatically take a dose at bedtime for the next 3 nights just to reduce your chance of overnight flare. Increased exercise, activity, hot foods may increase the swelling temporarily. It is very important that you call 911 or come directly back to the emergency department if you have a significant increase in swelling especially that of the tongue, lips or throat. Please make a follow-up appointment with her primary care provider in 1 week to discuss new management of your blood pressure. The CT of your head did not show any signs of a stroke. This also could be a hemiplegic migraine related to use of your control but based on the swelling of both your upper and lower left lips, this is much more likely angioedema. Activity Level: No Restrictions Discharge Diet: Regular Prescriptions: New prednisone 20 mg tablet 20 mg PO BID 3 Days Qty: 6 0RF hydroxyzine pamoate 25 mg capsule 25 mg PO QID PRN (Reason: angioedema) Qty: 20 0RF No Action Wegovy 2.4 mg/0.75 mL pen injector 2.4 mg subcut multivitamin Tablet 1 tab PO DAILY lisinopril 10 mg tablet 10 mg PO QDAY Qty: 90 0RF norgestimate-ethinyl estradiol [Estarylla] 0.25-35 mg-mcg tablet 1 tab PO DAILY Qty: 28 0RF fenofibrate 160 mg tablet 160 mg PO QDAY Qty: 30 0RF metoprolol succinate 100 mg tablet extended release 24 hr 100 mg PO QDAY Qty: 30 0RF Follow Up/Referrals: Dejah Darling PA-C [Primary Care Provider] - Stand Alone Forms: [facility] Info Instructions
[2024-08-20 06:47] LABS: Slide Review Reflex No
[2024-08-20] MEDS: hydrOXYzine pamoate 25 MG CAPSULE PO (06:51)
[2024-08-20] MEDS: FAMOTIDINE 20 MG TABLET PO (06:51)
[2024-08-20] MEDS: predniSONE 20 MG TABLET 40 MG PO (06:52)
[2024-08-20 06:53] LABS: Chloride* 104 mmol/L (96-114); Sodium* 136 mmol/L (135-149)
[2024-08-20 06:54] LABS: Potassium* 4.3 mmol/L (3.6-5.1)
[2024-08-20 06:56] LABS: Blood Urea Nitrogen* 15 mg/dL (5-24); Creatinine* 0.8 mg/dL (0.5-1.5); Est. Creatinine Clearance* 75.78; Estimated Glomerular Filt Rate 94 ml/min
[2024-08-20 06:57] LABS: Anion Gap 7 mEq/L (7-15); Carbon Dioxide* 25 mmol/L (20-32); Glucose* 87 mg/dL (60-115)
[2024-08-20 07:00] LABS: C Reactive Protein* 3.2 mg/dL (0.5-1.0)
[2024-08-20 07:25] VITALS: BP 126/87; PULSE 74; RESP 18; O2SAT 97
== END 2024-08-20 07:42 | disposition home or self-care (01) ==
PROVIDERS: Emergency Provider Family Medicine; PCP Physician Assistant
DX: T78.3XXA Angioneurotic edema, initial encounter (principal); R20.0 Anesthesia of skin
CPT/HCPCS: 36415; 70450; 80048; 85025; 86140; 99284; A9270; J7512

== ENCOUNTER 2025-03-14 11:19 | Outpatient (CLI) | payer BC, SELFPAY ==
--- NOTE | 2025-03-14 11:30 | CRLHL7_ITS ---
For Patients: As a result of the Century Cures Act, medical imaging exams and procedure reports are released immediately into your electronic medical record. You may view this report before your referring provider. If you have questions, please contact your health care provider. INDICATION: BILATERAL SCREENING MAMMOGRAM, ASYMPTOMATIC 44 Y/O FEMALE COMPARISON: 03/30/2023, 03/17/2023, 08/25/2019 TECHNIQUE: Digital mammogram in CC and MLO projections including computer-aided detection (CAD) and tomosynthesis. BREAST COMPOSITION: The breasts are heterogeneously dense, which may obscure small masses. FINDINGS: No suspicious findings. ASSESSMENT: BI-RADS 2 Benign RECOMMENDATION: Annual screening mammogram. A lay language report of this examination will be provided to the patient. Dictated by: Darek Estrella MD @ 03/15/2025 09:09:07 (Electronically Signed)
== END 2025-03-14 11:20 | disposition home or self-care (01) ==
LOC: MAMMO 11:19
PROVIDERS: PCP Physician Assistant; Visit Provider Physician Assistant
DX: Z12.31 Encounter for screening mammogram for malignant neoplasm of breast (principal); R92.333 Mammographic heterogeneous density, bilateral breasts
CPT/HCPCS: 77063; 77067